=== PATIENT | male | born 1955 | race Caucasian/White ===

== ENCOUNTER → 2020-04-22 | Outpatient (CLI) | payer OTHER | LOC: WCC 13:00 | DX: T81.30XA Disruption of wound, unspecified, initial encounter (principal); M25.561 Pain in right knee; I25.10 Atherosclerotic heart disease of native coronary artery without angina pectoris; I11.0 Hypertensive heart disease with heart failure; I50.9 Heart failure, unspecified; I73.9 Peripheral vascular disease, unspecified; I25.2 Old myocardial infarction; I77.6 Arteritis, unspecified; J44.9 Chronic obstructive pulmonary disease, unspecified ==

== ENCOUNTER → 2020-04-29 | Outpatient (CLI) | payer OTHER | LOC: WCC 13:00 | PROC: 0JBN0ZZ Excision of Right Lower Leg Subcutaneous Tissue and Fascia, Open Approach (ICD-10-PCS; principal; 2020-04-29) | DX: T81.31XA Disruption of external operation (surgical) wound, not elsewhere classified, initial encounter (principal); I96 Gangrene, not elsewhere classified; M19.90 Unspecified osteoarthritis, unspecified site; J44.9 Chronic obstructive pulmonary disease, unspecified; D64.9 Anemia, unspecified; Y83.8 Other surgical procedures as the cause of abnormal reaction of the patient, or of later complication, without mention of misadventure at the time of the procedure ==

== ENCOUNTER → 2020-05-06 | Outpatient (CLI) | payer OTHER | LOC: WCC 13:00 | PROC: 0KBS0ZZ Excision of Right Lower Leg Muscle, Open Approach (ICD-10-PCS; principal; 2020-05-06) | DX: T81.31XA Disruption of external operation (surgical) wound, not elsewhere classified, initial encounter (principal); I96 Gangrene, not elsewhere classified; J44.9 Chronic obstructive pulmonary disease, unspecified; K21.9 Gastro-esophageal reflux disease without esophagitis; D64.9 Anemia, unspecified; M19.90 Unspecified osteoarthritis, unspecified site; Y83.8 Other surgical procedures as the cause of abnormal reaction of the patient, or of later complication, without mention of misadventure at the time of the procedure ==

== ENCOUNTER → 2020-05-13 | Outpatient (CLI) | payer OTHER | LOC: WCC 08:41 | PROC: 0KBS0ZZ Excision of Right Lower Leg Muscle, Open Approach (ICD-10-PCS; principal; 2020-05-13) | DX: T81.31XA Disruption of external operation (surgical) wound, not elsewhere classified, initial encounter (principal); I96 Gangrene, not elsewhere classified; J44.9 Chronic obstructive pulmonary disease, unspecified; K21.9 Gastro-esophageal reflux disease without esophagitis; D64.9 Anemia, unspecified; M19.90 Unspecified osteoarthritis, unspecified site; Y83.8 Other surgical procedures as the cause of abnormal reaction of the patient, or of later complication, without mention of misadventure at the time of the procedure ==

== ENCOUNTER → 2020-05-20 | Outpatient (CLI) | payer OTHER | LOC: WCC 08:41 | PROC: 0JBN0ZZ Excision of Right Lower Leg Subcutaneous Tissue and Fascia, Open Approach (ICD-10-PCS; principal; 2020-05-20) | DX: T81.31XA Disruption of external operation (surgical) wound, not elsewhere classified, initial encounter (principal); I96 Gangrene, not elsewhere classified; J44.9 Chronic obstructive pulmonary disease, unspecified; K21.9 Gastro-esophageal reflux disease without esophagitis; M19.90 Unspecified osteoarthritis, unspecified site; D64.9 Anemia, unspecified; Y83.8 Other surgical procedures as the cause of abnormal reaction of the patient, or of later complication, without mention of misadventure at the time of the procedure | CPT/HCPCS: A6212 ==

== ENCOUNTER → 2020-09-01 | Outpatient (CLI) | payer MEDICARE | LOC: OPSV 13:00 | DX: M00.061 Staphylococcal arthritis, right knee (principal); B95.62 Methicillin resistant Staphylococcus aureus infection as the cause of diseases classified elsewhere | CPT/HCPCS: G0463 ==

== ENCOUNTER → 2020-09-29 | Outpatient (CLI) | payer MEDICARE | LOC: OPSV 12:54 | DX: M00.061 Staphylococcal arthritis, right knee (principal); B95.62 Methicillin resistant Staphylococcus aureus infection as the cause of diseases classified elsewhere | CPT/HCPCS: G0463 ==

== ENCOUNTER → 2020-10-27 | Outpatient (CLI) | payer MEDICARE ==
[2020-10-27 14:11] LABS: HEMOGLOBIN 12.5 gm/dl (14.0-17.5); RED BLOOD COUNT 4.2 M/UL (4.20-5.50); WHITE BLOOD COUNT 6.4 K/UL (4.5-11.0)
[2020-10-27 14:31] LABS: BUN/CREATININE RATIO 22 (0-10)
== END ==
LOC: OPSV 12:00
PROVIDERS: Internal Medicine Infectious Disease
DX: M00.061 Staphylococcal arthritis, right knee (principal); B95.8 Unspecified staphylococcus as the cause of diseases classified elsewhere
CPT/HCPCS: 80053; 85025; 86140